=== PATIENT | female | born 1995 | race Hispanic/Latino ===

== ENCOUNTER 2018-07-01 13:45 | Emergency (ER) | payer OTHER ==
[~2018-07-01] VITALS: Ht 160 cm; Wt 127.0 kg
[2018-07-01] MEDS ORDERED: IBUPROFEN200 M1 PO (14:44)
[2018-07-01] MEDS ORDERED: SUDAFED 12-HOU120 MG PO (18:01)
[2018-07-01] MEDS ORDERED: AMOXICILLIN500 MG PO (18:01)
== END 2018-07-01 18:10 | disposition home or self-care (01) ==
LOC: ED 13:45
DX: J32.9 Chronic sinusitis, unspecified (principal); I10 Essential (primary) hypertension; Z87.442 Personal history of urinary calculi; Z79.899 Other long term (current) drug therapy
CPT/HCPCS: 70450; 84703; 99284-25